=== PATIENT | male | born 1975 | race Two or more races ===

== ENCOUNTER 2025-01-08 18:52 | Emergency (ER) | payer SELFPAY ==
[2025-01-08] MEDS ORDERED: DIAZEPAM 5 MG TABLET ONE (19:21)
[2025-01-08] MEDS ORDERED: KETOROLAC 30 MG/ML INJ ONE (19:21)
--- NOTE | 2025-01-08 19:37 | RAD REPORT ---
EXAMINATION: XR Tib Fib Right CLINICAL INDICATION: Male, 49 years old. PAIN TECHNIQUE: 2 view radiograph of the right tibia and fibula were obtained. COMPARISON: No prior exam. FINDINGS: No evidence of fracture or dislocation. Normal alignment. Mild to moderate degenerative jose nges at the ankle joint. No other focal bone lesion. Soft tissues are unremarkable. IMPRESSION: No acute osseous abnormalities. Ankle joint degenerative changes.
--- NOTE | 2025-01-08 19:37 | RAD REPORT ---
EXAMINATION: XR Foot Right 3 View CLINICAL INDICATION: Male, 49 years old. [facility] MAIN PAIN Bed Name: 4 TECHNIQUE: 3 view radiographs of the right foot were obtained. COMPARISON: No prior exam. FINDINGS: Comminuted and displaced fractures involving the shaft and base of the fifth metatarsal. Gaming rrounding soft tissue swelling. Mild degenerative changes at the first metatarsophalangeal articulation. Normal alignment otherwise. No evidence of arthropathy or other focal bone lesion. IMPRESSION: Comminuted and displaced fractures of the proximal fifth metatarsal sparing the head as above.
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
[2025-01-08 22:04] VITALS: BP 129/99; TEMP 97.8; O2SAT 100
== END 2025-01-08 21:23 | disposition home or self-care (01) ==
LOC: ER 18:52
PROC: 2W3SX1Z Immobilization of Right Foot using Splint (ICD-10-PCS; principal; 2025-01-08)
DX: S92.351A Displaced fracture of fifth metatarsal bone, right foot, initial encounter for closed fracture (principal)
CPT/HCPCS: 96372; 99284